=== PATIENT | female | born 1995 | race Caucasian/White ===

== ENCOUNTER 2017-05-14 02:55 | Emergency (ER) | payer SELFPAY ==
[~2017-05-14] VITALS: Ht 172.7 cm; Wt 49.9 kg
[2017-05-14] MEDS ORDERED: AMOXICILLIN-CLAVUL 875-125MG TABLET PO ONE (03:30)
[2017-05-14] MEDS ORDERED: ONDANSETRON ODT 4 MG TAB.RAPDIS SL ONE (03:30)
[2017-05-14] MEDS ORDERED: HYDROCODONE/APAP 5-325MG TABLET PO ONE (03:30)
--- NOTE | 2017-05-14 03:39 | NUR ---
Patient discharged to home in stable conditon. Written and verbal after care instructions given. Patient verbalizes understanding of instructions.
[2017-05-14] MEDS ORDERED: AMOXICILLIN-CLAVUL 875-125MG TABLET ONE (03:52)
[2017-05-14] MEDS ORDERED: ONDANSETRON ODT 4 MG TAB.RAPDIS ONE (03:52)
[2017-05-14] MEDS ORDERED: HYDROCODONE/APAP 5-325MG TABLET ONE (03:53)
== END 2017-05-14 03:48 | disposition home or self-care (01) ==
LOC: ER 03:00
DX: J32.9 Chronic sinusitis, unspecified (principal); R10.9 Unspecified abdominal pain; R51 Headache; R68.84 Jaw pain; J45.909 Unspecified asthma, uncomplicated; F17.200 Nicotine dependence, unspecified, uncomplicated
CPT/HCPCS: 99284; A4663; Q0162